=== PATIENT | male | born 1990 | race Two or more races ===

== ENCOUNTER 2019-12-03 15:37 | Emergency (ER) | payer MEDICAID, OTHER ==
[~2019-12-03] VITALS: Ht 175.3 cm; Wt 99.8 kg
[2019-12-03] MEDS ORDERED: SODIUM CHLORIDE 0.9% 500 ML IVB ONE (15:40)
[2019-12-03 16:48] LABS: Basophils # (auto) 0 10 ^3/uL (0-0.2); Basophils % (auto) 0.4 % (0.0-2.0); Eosinophils # (auto) 0.1 10 ^3/uL (0-0.8); Eosinophils % (auto) 1.2 % (0.0-7.0); Hematocrit 42.7 % (41.0-53.0); Hemoglobin 14.5 g/dL (13.5-17.5); Lymphocytes # (auto) 2.1 10 ^3/uL (0.4-5.4); Lymphocytes % (auto) 26.2 % (10.0-50.0); Mean Corpuscular Hemoglobin 31.1 pg (28.0-32.0); Mean Corpuscular Hgb Conc. 33.8 g/dL (32.0-36.0); Monocytes # (auto) 0.6 10 ^3/uL (0-1.3); Neutrophils # (auto) 5.1 10 ^3/uL (1.6-8.6); Neutrophils % (auto) 64.2 % (37.0-80.0); Nucleated Red Blood Cells % 0.1 %; Platelet Count (auto) 239 10^3/uL (140-450); Red Blood Cells 4.65 10^6/uL (4.5-5.90); Red Cell Distribution Width 13.9 % (11.8-14.3)
[2019-12-03 17:02] LABS: Albumin 3.9 g/dL (3.4-5.0); Anion Gap 6 (5-15); Blood Urea Nitrogen 20 mg/dL (7-18); Calcium 8.5 mg/dL (8.5-10.1); Carbon Dioxide 23 mmol/L (21-32); Chloride 112 mmol/L (98-107); Glucose 107 mg/dL (74-106); Potassium 3.7 mmol/L (3.5-5.1); Sodium 141 mmol/L (136-145)
[2019-12-03 17:05] LABS: Alanine Aminotransferase 58 U/L (16-61); Blood Alcohol < 3.0 mg/dL (0-5); GFR African American 133 mL/min; GFR Non-African American 110 mL/min
[2019-12-03 17:11] LABS: Alkaline Phosphatase 88 U/L (45-117); Aspartate Aminotransferase 30 U/L (15-37); Bilirubin, Total 0.6 mg/dL (0.2-1.0); Total Protein 7.4 g/dL (6.4-8.2)
[2019-12-03 17:13] LABS: Acetaminophen < 2.0 ug/mL (10-30); Salicylate < 1.7 mg/dL (2.8-20.0)
[2019-12-03 22:30] LABS: Amphetamine Screen, Urine POSITIVE (NEGATIVE); Barbiturate Scree,Urine NEGATIVE (NEGATIVE); Benzodiazephine Screen, Urine POSITIVE (NEGATIVE); Cannabinoid Screen, Urine POSITIVE (NEGATIVE); Cocaine Screen, Urine NEGATIVE (NEGATIVE); Opiate Scree,Urine NEGATIVE (NEGATIVE); Phencyclidine Screen, Urine NEGATIVE (NEGATIVE)
[2019-12-03 22:32] LABS: Alcohol, Urine < 3.0 mg/dL (0-10)
[2019-12-08 00:06] VITALS: BP 116/72
== END 2019-12-08 11:07 | disposition home or self-care (01) ==
LOC: ER 15:37 → EDBD 15:37 → ER 12-08 11:07
DX: T50.901A Poisoning by unspecified drugs, medicaments and biological substances, accidental (unintentional), initial encounter (principal); Y92.89 Other specified places as the place of occurrence of the external cause
CPT/HCPCS: 36415; 80053; 80307; 80320; 80329; 85025; 93005

== ENCOUNTER 2023-01-15 23:58 | Inpatient (IN) | payer OTHER, MEDICAID ==
[~2023-01-15] VITALS: Ht 177.8 cm; Wt 128.0 kg
[~2023-01-15 23:58] MED LIST: ETOMIDATE (2MG/ML) 20ML VIAL IV ONE; MIDAZOLAM HCL 2MG/2ML 2ml VIAL (1mg/ml) ONE; ROCURONIUM 10MG/ML 10ML VIAL IV ONE
[2023-01-16] VITALS (48 sets, daily range): BP systolic 83–135; BP diastolic 39–96; PULSE 67–114; RESP 12–28; TEMP 97.7–98.6; O2SAT 94–100
[2023-01-16] MEDS: MIDAZOLAM DRIP 50 mg/50mL 50 ML IV SCH ×5 (00:02→10:32)
[2023-01-16] MEDS ORDERED: MIDAZOLAM DRIP 50 mg/50mL 50 ML IV ONE (00:02)
[2023-01-16] MEDS ORDERED: PROPOFOL 100 ML IV ONE (01:39)
[2023-01-16] MEDS: PROPOFOL 100 ML IV SCH ×2 (01:45→10:33)
[2023-01-16 01:48] LABS: Urine Bacteria NONE SEEN /hpf (None Seen); Urine Blood Negative /uL (Negative); Urine Mucus FEW (None Seen); Urine Specific Gravity 1.014 (1.001-1.035); Urine Sperm PRESENT /hpf (None Seen); Urine WBC <1 /hpf (0 - 3)
[2023-01-16 01:57] LABS: Alcohol, Urine < 3.0 mg/dL (0-10); Amphetamine Screen, Urine POSITIVE (NEGATIVE); Barbiturate Scree,Urine NEGATIVE (NEGATIVE); Benzodiazephine Screen, Urine POSITIVE (NEGATIVE); Cannabinoid Screen, Urine NEGATIVE (NEGATIVE); Cocaine Screen, Urine NEGATIVE (NEGATIVE)
[2023-01-16 02:05] LABS: Opiate Scree,Urine NEGATIVE (NEGATIVE); Phencyclidine Screen, Urine NEGATIVE (NEGATIVE)
[2023-01-16] MEDS ORDERED: MIDAZOLAM DRIP 50 mg/50mL 50 ML IV SCH (02:15)
[2023-01-16] MEDS ORDERED: MIDAZOLAM HCL 5 MG/ML-1ML VIAL IV ONE (02:15)
[2023-01-16] MEDS ORDERED: PROPOFOL 100 ML IV SCH (02:15)
[2023-01-16] MEDS ORDERED: ROCURONIUM 10MG/ML 10ML VIAL IV ONE ×2 (02:15→04:15)
[2023-01-16] MEDS ORDERED: ETOMIDATE (2MG/ML) 20ML VIAL IV ONE (02:15)
[2023-01-16 02:20] LABS: Basophils # (auto) 0 10 ^3/uL (0-0.2); Basophils % (auto) 0.2 % (0.0-2.0); Eosinophils # (auto) 0 10 ^3/uL (0-0.8); Eosinophils % (auto) 0.5 % (0.0-7.0); Hemoglobin 16.3 g/dL (13.5-17.5); Lymphocytes # (auto) 2.8 10 ^3/uL (0.4-5.4); Lymphocytes % (auto) 29.8 % (10.0-50.0); Mean Corpuscular Hemoglobin 30.2 pg (28.0-32.0); Mean Corpuscular Hgb Conc. 33.2 g/dL (32.0-36.0); Monocytes # (auto) 0.6 10 ^3/uL (0-1.3); Monocytes % (auto) 6.2 % (0.0-12.0); Neutrophils # (auto) 5.9 10 ^3/uL (1.6-8.6); Neutrophils % (auto) 63.3 % (37.0-80.0); Nucleated Red Blood Cells % 0.3 %; Red Blood Cells 5.39 10^6/uL (4.5-5.90); Red Cell Distribution Width 14.2 % (11.8-14.3); White Blood Cell 9.3 10^3/uL (4.4-10.8)
[2023-01-16] MEDS ORDERED: ACETAMINOPHEN 325 MG TAB PO PRN (05:00)
[2023-01-16] MEDS ORDERED: ONDANSETRON HCL 4 MG/2 ML VIAL IV PRN (05:00)
[2023-01-16] MEDS ORDERED: SODIUM CHLORIDE 0.9% 1,000 ML IV ONE (05:00)
[2023-01-16] MEDS ORDERED: MORPHINE SULFATE INJ 2 MG/ml SYRG IV PRN (05:00)
[2023-01-16] MEDS ORDERED: SODIUM CHLORIDE 0.9% 1,000 ML IV SCH (05:00)
[2023-01-16] MEDS ORDERED: NITROGLYCERIN 0.4 MG SL TAB SL PRN (05:00)
[2023-01-16 05:31] LABS: INR 1.04 (0.9-1.15)
[2023-01-16 05:54] LABS: Acetaminophen < 2.0 ug/mL (10-30); Salicylate < 1.7 mg/dL (2.8-20.0)
[2023-01-16 05:57] LABS: Sodium 137 mmol/L (136-145)
[2023-01-16 05:58] LABS: Alanine Aminotransferase 92 U/L (16-61); Alkaline Phosphatase 104 U/L (45-117); Anion Gap 11 (5-15); Aspartate Aminotransferase 44 U/L (15-37); BUN/Creatinine Ratio 12.9 (10.0-20.0); Blood Urea Nitrogen 12 mg/dL (7-18); Carbon Dioxide 20 mmol/L (21-32); Chloride 106 mmol/L (98-107); GFR African American 121 mL/min; GFR Non-African American 100 mL/min; Glucose 114 mg/dL (74-106)
[2023-01-16 05:59] LABS: Albumin 4.1 g/dL (3.4-5.0); Bilirubin, Total 0.4 mg/dL (0.2-1.0); Blood Alcohol < 3.0 mg/dL (<10); Total Protein 8.4 g/dL (6.4-8.2)
[2023-01-16 06:24] LABS: Lipase 100 U/L (73-393)
[2023-01-16] MEDS ORDERED: PHENYLEPHRINE IV 250 ML IV ONE (06:33)
[2023-01-16] MEDS: PHENYLEPHRINE IV 250 ML IV SCH ×3 (06:38→16:18)
[2023-01-16] MEDS: PANTOPRAZOLE 40 MG/10 ML VIAL INJ IV SCH (09:38)
[2023-01-16 10:44] LABS: Potassium 4.1 mmol/L (3.5-5.1)
[2023-01-16 10:55] LABS: Albumin 3.6 g/dL (3.4-5.0); Bilirubin, Total 0.6 mg/dL (0.2-1.0); Calcium 8.2 mg/dL (8.5-10.1)
[2023-01-17] VITALS (14 sets, daily range): BP systolic 89–118; BP diastolic 54–74; PULSE 82–106; RESP 12–26; TEMP 97.8–98; O2SAT 91–100
[2023-01-17 04:30] LABS: Basophils # (auto) 0 10 ^3/uL (0-0.2); Basophils % (auto) 0.5 % (0.0-2.0); Eosinophils # (auto) 0.1 10 ^3/uL (0-0.8); Eosinophils % (auto) 1.3 % (0.0-7.0); Hematocrit 41.9 % (41.0-53.0); Hemoglobin 14.4 g/dL (13.5-17.5); Lymphocytes # (auto) 2.7 10 ^3/uL (0.4-5.4); Lymphocytes % (auto) 37.8 % (10.0-50.0); Mean Corpuscular Hemoglobin 31.1 pg (28.0-32.0); Mean Corpuscular Hgb Conc. 34.4 g/dL (32.0-36.0); Mean Corpuscular Volume 90.5 fL (80.0-100.0); Monocytes # (auto) 0.5 10 ^3/uL (0-1.3); Monocytes % (auto) 6.8 % (0.0-12.0); Neutrophils # (auto) 3.8 10 ^3/uL (1.6-8.6); Neutrophils % (auto) 53.6 % (37.0-80.0); Nucleated Red Blood Cells % 0.4 %; Potassium 3.8 mmol/L (3.5-5.1); Red Blood Cells 4.63 10^6/uL (4.5-5.90); Red Cell Distribution Width 14.2 % (11.8-14.3); White Blood Cell 7.1 10^3/uL (4.4-10.8)
[2023-01-17 04:36] LABS: Albumin 3.3 g/dL (3.4-5.0); BUN/Creatinine Ratio 14.5 (10.0-20.0); Calcium 8.8 mg/dL (8.5-10.1)
[2023-01-17 04:38] LABS: Bilirubin, Total 0.6 mg/dL (0.2-1.0); Total Protein 6.8 g/dL (6.4-8.2)
[2023-01-17] MEDS: PHENYLEPHRINE IV 250 ML IV SCH (07:30)
[2023-01-17] MEDS ORDERED: levETIRAcetam 500 MG TAB PO ONE (10:00)
[2023-01-17] MEDS: PANTOPRAZOLE 40 MG/10 ML VIAL INJ IV SCH (10:25)
== END 2023-01-17 13:53 | disposition home or self-care (01) | DRG 208 ==
LOC: EDBD 23:58 → EDUNIT# 23:58 → ER 01-16 00:03 → TELE 01-16 05:05 → ICU WEST 01-16 07:03
PROVIDERS: ADMIT Nurse Practitioner Acute Care; ATTEND Nurse Practitioner Acute Care
PROC: 5A1935Z Respiratory Ventilation, Less than 24 Consecutive Hours (ICD-10-PCS; principal; 2023-01-16)
PROC: 0BH17EZ Insertion of Endotracheal Airway into Trachea, Via Natural or Artificial Opening (ICD-10-PCS; 2023-01-16)
PROC: 06HM33Z Insertion of Infusion Device into Right Femoral Vein, Percutaneous Approach (ICD-10-PCS; 2023-01-16)
PROC: 4A143B0 Monitoring of Venous Pressure, Central, Percutaneous Approach (ICD-10-PCS; 2023-01-16)
DX: J96.00 Acute respiratory failure, unspecified whether with hypoxia or hypercapnia (principal); G93.41 Metabolic encephalopathy; R57.9 Shock, unspecified; Z68.41 Body mass index [BMI] 40.0-44.9, adult; E66.01 Morbid (severe) obesity due to excess calories; F15.90 Other stimulant use, unspecified, uncomplicated; F20.9 Schizophrenia, unspecified; F31.9 Bipolar disorder, unspecified; G40.909 Epilepsy, unspecified, not intractable, without status epilepticus; F17.210 Nicotine dependence, cigarettes, uncomplicated; T50.901A Poisoning by unspecified drugs, medicaments and biological substances, accidental (unintentional), initial encounter; Y92.89 Other specified places as the place of occurrence of the external cause
CPT/HCPCS: 31500; 36415; 36556; 36600; 70450; 71045; 71250; 72125; 74176; 80053; 80307; 80320; 80329; 81001; 82550; 82805; 83605; 83690; 84484; 85025; 85610; 87070; 87077; 87081; 87205; 93005; 94003; 99152; 99291; C9113; G0378; J2250; J2704; J7060

== ENCOUNTER 2024-07-17 22:33 | Emergency (ER) | payer OTHER, MEDICAID ==
[~2024-07-17] VITALS: Ht 170.2 cm; Wt 104.5 kg
[2024-07-17] MEDS: NALOXONE HCL 1MG/ML 2ML SYRINGE ONE ×2 (22:40→22:44)
[2024-07-17 23:00] VITALS: TEMP 97.9
[2024-07-17] MEDS ORDERED: NALOXONE HCL 1MG/ML 2ML SYRINGE IV ONE (23:00)
--- NOTE | 2024-07-17 23:07 | ED.PDOC ---
Altered Mental Status HPI Comments 33-year-old male came to ER via EMS for altered level of consciousness. Per EMS, patient was seen unresponsive on the bathroom floor by family members. Unresponsive to verbal stimuli. Upon arrival the paramedics, patient able to get up to the couch, denied using any prohibited drugs before becoming unresponsive again. Patient was given 2mg Narcan IN which slightly woke up the patient. Chief Complaint: ALOC Time Seen by MD: 23:07 Reviewed Notes: Nurses Notes Allergies: Coded Allergies: NO KNOWN ALLERGIES (Unverified , 07/17/24) Information Source: Emergency Med Personnel Mode of Arrival: EMS Severity: Unable to Care for Self, Unresponsive Timing: Minutes Duration: Since onset Prehospital treatment: Treatment (Narcan) Quality: Decreased Alertness, Change in Behavior Recent: None History of: None Associated Signs and Symptoms: None Past Medical History PAST MEDICAL HISTORY: Depression Surgical History: Unobtainable Family History Family History: Unobtainable Social History Smoker: Unobtainable Alcohol: Unobtainable Drugs: Unobtainable Lives In: Home Unable to Obtain due to: Other (Unresponsive to verbal stimuli) Physical Exam General Appearance: Mild Distress, Normal HEENT: Normal ENT Inspection, Pharynx Normal, TMs Normal Neck: Full Range of Motion, Non-Tender, Normal, Normal Inspection Respiratory: Chest Non-Tender, Lungs Clear, No Accessory Muscle Use, No Respiratory Distress, Normal Breath Sounds Cardiovascular: No Edema, No JVD, No Murmur, No Gallop, Normal Peripheral Pulses, Regular Rate/Rhythm Breast Exam: Deferred Gastrointestinal: No Organomegaly, Non Tender, No Pulsatile Mass, Normal Bowel Sounds, Soft Genitalia: Deferred Pelvic: Deferred Rectal: Deferred Extremities: No calf tenderness, Normal capillary refill, Normal inspection, Normal range of motion, Non-tender, No pedal edema Musculoskeletal : Apperance: Normal Neurologic: Alert, sports equipment racker II-XII nml as Tested, No Motor Deficits, Normal Affect, Normal Mood, No Sensory Deficits Cerebellar Function: Normal Reflexes: Normal Skin: Dry, Normal Color, Warm Lymphatic: No Adenopathy EKG EKG : Pulse Rate (adult): 76 Cardiac Rhythm: NSR Was a procedure done? Was a procedure done?: No Differential Diagnosis (ALOC) Differential Diagnosis: Dehydration, Hypoglycemia, Encephalopathy, Hypoxemia, Seizure, CVA, Drug Overdose, ETOH Intoxication X-Ray, Labs, Meds, VS Vital Signs Date Time Temp Pulse Resp B/P (MAP) Pulse Ox O2 Delivery O2 Flow Rate FiO2 07/18/24 00:00 58 12 123/88 (100) 99 07/17/24 23:08 76 07/17/24 23:00 Nasal Cannula* 2 28 07/17/24 23:00 97.9 61 12 122/79 (93) 100 97.9 07/17/24 22:54 18 94 Room Air* 0 21 07/17/24 22:48 97.7 70 18 117/51 (73) 94 07/17/24 22:33 76 Lab Test 07/18/24 00:16 07/17/24 22:48 Range/Units Troponin I High Sensitivity 4 3 L </=54 ng/L White Blood Count 8.6 4.4-10.8 10^3/uL Red Blood Count 5.08 4.5-5.90 10^6/uL Hemoglobin 15.7 13.5-17.5 g/dL Hematocrit 46.4 41.0-53.0 % Mean Corpuscular Volume 91.3 80.0-100.0 fL Mean Corpuscular Hemoglobin 30.8 28.0-32.0 pg Mean Corpuscular Hemoglobin Concent 33.7 32.0-36.0 g/dL Red Cell Distribution Width 14.2 11.8-14.3 % Platelet Count 237 140-450 10^3/uL Mean Platelet Volume 6.8 L 6.9-10.8 fL Neutrophils (%) (Auto) 74.1 37.0-80.0 % Lymphocytes (%) (Auto) 19.8 10.0-50.0 % Monocytes (%) (Auto) 5.6 0.0-12.0 % Eosinophils (%) (Auto) 0.3 0.0-7.0 % Basophils (%) (Auto) 0.2 0.0-2.0 % Neutrophils # (Auto) 6.4 1.6-8.6 10 ^3/uL Lymphocytes # (Auto) 1.7 0.4-5.4 10 ^3/uL Monocytes # (Auto) 0.5 0-1.3 10 ^3/uL Eosinophils # (Auto) 0 0-0.8 10 ^3/uL Basophils # (Auto) 0 0-0.2 10 ^3/uL Nucleated Red Blood Cells 0.3 % Sodium Level 139 136-145 mmol/L Potassium Level 3.7 3.5-5.1 mmol/L Chloride Level 106 98-107 mmol/L Carbon Dioxide Level 24 20-31 mmol/L Anion Gap 9 5-15 Blood Urea Nitrogen 10 9-23 mg/dL Creatinine 1.27 0.700-1.30 mg/dL Glomerular Filtration Rate Calc 77 >90 mL/min BUN/Creatinine Ratio 7.9 L 10.0-20.0 Serum Glucose 108 H 74-106 mg/dL Lactic Acid Level 1.2 0.4-2.0 mmol/L Calcium Level 9.8 8.7-10.4 mg/dL Total Bilirubin 1.0 0.2-1.0 mg/dL Aspartate Amino Transferase (AST) 35 13-40 U/L Alanine Aminotransferase (ALT) 69 H 7-40 U/L Alkaline Phosphatase 89 46-116 U/L Total Protein 7.6 5.7-8.2 g/dL Albumin 4.8 3.2-4.8 g/dL Plasma/Serum Blood Alcohol < 3.0 <10 mg/dL [place] [id number] Ph: [phone] DIAGNOSTIC IMAGING Diagnostic Imaging Report : [id number] Signed PATIENT: SUPRIYA BEGUMOACCT: [id number] UNIT: [id number] : 1990 LOC: ER ROOM / BED: / AGE / SEX: 33 / M ADM STATUS: REG ER SERVICE [id number] ORDERING PHYSICIAN: ZONIA HUNTLEY MD PROCEDURE(s): HWOCT - HEAD WITHOUT CONTRAST REASON: low po2 ORDER NUMBER(s): [id number], ACCESSION NUMBER(s): [id number] CT BRAIN WITHOUT CONTRAST HISTORY: low po2 TECHNIQUE: Axial scans were obtained from the skull base through the vertex without contrast. Sagittal and coronal reformats were generated. One or more of the following radiation dose reduction techniques were used for this examination: automated exposure control, adjustment of the mA and/or kV according to patient size, use of iterative reconstruction technique. COMPARISON: 01/16/2023 FINDINGS: No acute intracranial hemorrhage or evidence of large vessel territorial infarction identified at this time. No midline shift. The basilar cisterns are patent. Owens-white differentiation appears relatively preserved. Presumed posterior fossa arachnoid cyst is again noted. If clinically warranted this can be further evaluated with MRI. Mild mucosal thickening in the imaged right maxillary sinus. The other paranasal sinuses and mastoid air cells are clear. No grossly displaced calvarial fracture is identified. IMPRESSION: No acute intracranial findings. HS:Y ATED BY: MANJIT ARVIZU MD DICTATED DATE/TIME: 07/18/24107 SIGNED BY: MANJIT ARVIZU MD SIGNED DATE/TIME: 07/18/24107 CC: [place] [id number] Ph: [phone] DIAGNOSTIC IMAGING Diagnostic Imaging Report : [id number] Signed PATIENT: SUPRIYA BEGUMOACCT: [id number] UNIT: [id number] : 1990 LOC: ER ROOM / BED: / AGE / SEX: 33 / M ADM STATUS: REG ER SERVICE 44 ORDERING PHYSICIAN: ZONIA HUNTLEY MD PROCEDURE(s): CXRP - CHEST PORTABLE REASON: sob ORDER NUMBER(s): [id number], ACCESSION NUMBER(s): [id number] CHEST RADIOGRAPH Indication: sob Technique: Single frontal view of the chest was obtained Comparison: None Findings/ impression: Low lung volumes with bronchovascular crowding. Left basilar opacification concerning for atelectasis versus airspace disease. ATED BY: SADA HENDRICKS DO DICTATED DATE/TIME: 07/18/2441 SIGNED BY: SADA HENDRICKS DO SIGNED DATE/TIME: 07/18/2441 CC: First troponin is three. 2nd troponin is four. EKG shows no signs of ischemia CBC and CMP is pending Alcohol is negative. Urine drug screen is pending. Suspect polysubstance abuse Chest x-ray shows left basilar opacities. The patient was placed on Levaquin and admitted to the hospitalist. Time of 1ST Reevaluation: 23:00 Reevaluation 1ST: Unchanged Patient Education/Counseling: Pt Unresponsive (Unresponsive to verbal stimuli) Family Education/Counseling: No Family Present Departure 1 Departure Time of Disposition: 01:54 Impression: Primary Impression: Altered mental status Qualified Codes: R41.82 - Altered mental status, unspecified Additional Impressions: Metabolic encephalopathy Pneumonia Qualified Codes: J18.9 - Pneumonia, unspecified organism Polysubstance abuse Disposition: ADMITTED INPATIENT Admit to: Tele Condition: Guarded Critical Care Note Critical Care Time?: Yes (35 min-critical care time only) Critical care comment: Altered level of consciousness Stability Stability form required: No Heart Score Heart Score: Heart Score Response (Comments) Value History N/A 0 EKG N/A 0 Age N/A 0 Risk Factors N/A 0 Troponin N/A 0 Total 0 I personally scribed for ZONIA HUNTLEY MD (BRIE) on 07/17/24 at 23:07. Electronically submitted by Alfred Rdz ([email or web address]). I personally scribed for ZONIA HUNTLEY MD (BRIE) on 07/17/24 at 23:08. Electronically submitted by Alfred Rdz ([email or web address]). ZONIA HUNTLEY MD Jul 17, 2024 23:07
[2024-07-17 23:57] LABS: Basophils # (auto) 0 10 ^3/uL (0-0.2); Basophils % (auto) 0.2 % (0.0-2.0); Eosinophils # (auto) 0 10 ^3/uL (0-0.8); Eosinophils % (auto) 0.3 % (0.0-7.0); Hematocrit 46.4 % (41.0-53.0); Hemoglobin 15.7 g/dL (13.5-17.5); Lymphocytes # (auto) 1.7 10 ^3/uL (0.4-5.4); Lymphocytes % (auto) 19.8 % (10.0-50.0); Mean Corpuscular Hemoglobin 30.8 pg (28.0-32.0); Mean Corpuscular Hgb Conc. 33.7 g/dL (32.0-36.0); Mean Corpuscular Volume 91.3 fL (80.0-100.0); Monocytes # (auto) 0.5 10 ^3/uL (0-1.3); Monocytes % (auto) 5.6 % (0.0-12.0); Neutrophils # (auto) 6.4 10 ^3/uL (1.6-8.6); Neutrophils % (auto) 74.1 % (37.0-80.0); Nucleated Red Blood Cells % 0.3 %; Platelet Count (auto) 237 10^3/uL (140-450); Red Blood Cells 5.08 10^6/uL (4.5-5.90); Red Cell Distribution Width 14.2 % (11.8-14.3); White Blood Cell 8.6 10^3/uL (4.4-10.8)
[2024-07-18 00:15] LABS: Albumin 4.8 g/dL (3.2-4.8); Alkaline Phosphatase 89 U/L (46-116); Anion Gap 9 (5-15); Aspartate Aminotransferase 35 U/L (13-40); BUN/Creatinine Ratio 7.9 (10.0-20.0); Blood Urea Nitrogen 10 mg/dL (9-23); Calcium 9.8 mg/dL (8.7-10.4); Carbon Dioxide 24 mmol/L (20-31); Chloride 106 mmol/L (98-107); Potassium 3.7 mmol/L (3.5-5.1); Sodium 139 mmol/L (136-145)
[2024-07-18 00:16] LABS: Total Protein 7.6 g/dL (5.7-8.2)
[2024-07-18 00:22] LABS: Alanine Aminotransferase 69 U/L (7-40); Blood Alcohol < 3.0 mg/dL (<10); Glucose 108 mg/dL (74-106)
--- NOTE | 2024-07-18 00:44 | DVH ---
CHEST RADIOGRAPH Indication: sob Technique: Single frontal view of the chest was obtained Comparison: None Findings/ impression: Low lung volumes with bronchovascular crowding. Left basilar opacification conc erning for atelectasis versus airspace disease.
--- NOTE | 2024-07-18 01:10 | DVH ---
CT BRAIN WITHOUT CONTRAST HISTORY: low po2 TECHNIQUE: Axial scans were obtained from the skull base through the vertex without contrast. Sagitta l and coronal reformats were generated. One or more of the following radiation dose reduction techniq ues were used for this examination: automated exposure control, adjustment of the mA and/or kV accord ing to patient size, use of iterative reconstruction technique. COMPARISON: 01/16/2023 FINDINGS: No acute intracranial hemorrhage or evidence of large vessel territorial infarction identified at thi s time. No midline shift. The basilar cisterns are patent. Owens-white differentiation appears relati vely preserved. Presumed posterior fossa arachnoid cyst is again noted. If clinically warranted this can be further evaluated with MRI. Mild mucosal thickening in the imaged right maxillary sinus. The other paranasal sinuses and mastoid air cells are clear. No grossly displaced calvarial fracture is identified. IMPRESSION: No acute intracranial findings. HS:Y
[2024-07-18] MEDS ORDERED: levoFLOXacin 500MG 100 ML IV ONE (02:00)
[2024-07-18] MEDS: cefTRIAXone 1GM/50ML D5W 50 ML IV ONE (07:04)
[2024-07-18 07:23] VITALS: BP 152/112; RESP 14; O2SAT 99
[2024-07-18 08:01] VITALS: PULSE 84
--- NOTE | 2024-07-19 13:13 | ECG ---
[facility] Test Date: 2024-07-17 Test Time: 22:32:39 Pat Name: PILY BELLAMYSHY Department: er Room: Gender: M Supervisor [employer]: : 1990 Requested By: ZONIA HUNTLEY Order Number: [id number] Reading MD: Freddie Huston Measurements Intervals [place] Rate: 76 P: 33 MS: 156 QRS: 23 QRSD: 96 T: 56 QT: 379 QTc: 427 Interpretive Statements Sinus rhythm Electronically Signed On 07-19-2024 21:11:30 PST by Freddie Huston Please click the below link to view image of tracing.
== END 2024-07-18 09:31 | disposition left against medical advice (07) ==
LOC: ER 22:33 → MERGE 22:33 → EDBD 22:33 → ER 07-18 09:26
DX: R41.82 Altered mental status, unspecified (principal); G93.41 Metabolic encephalopathy; J18.9 Pneumonia, unspecified organism; F32.A Depression, unspecified; Z79.899 Other long term (current) drug therapy
CPT/HCPCS: 36415; 70450; 71045; 80053; 80320; 83605; 84484; 85025; 93005; 96365; 99291; J0696; J2310

== ENCOUNTER 2025-03-08 22:28 | Emergency (ER) | payer OTHER, MEDICAID ==
[~2025-03-08] VITALS: Ht 175.3 cm; Wt 100.0 kg
[2025-03-08] MEDS: NALOXONE HCL 1MG/ML 2ML SYRINGE ONE (22:43)
[2025-03-08] MEDS: NALOXONE HCL 1MG/ML 2ML SYRINGE IV ONE (23:18)
[2025-03-08 23:25] VITALS: PULSE 67; RESP 18; O2SAT 97
--- NOTE | 2025-03-09 00:12 | ED.PDOC ---
Altered Mental Status HPI Comments 34-year-old male brought in by ambulance found by mother difficult to arouse and somnolent. EMS noted that the patient's pupils appear pinpoint and sluggish and gave some Narcan was mild improvement Chief Complaint: ALOC Time Seen by MD: 00:02 Allergies: Coded Allergies: NO KNOWN ALLERGIES (Unverified , 12/03/19) Home Meds No Active Prescriptions or Reported Meds Information Source: Patient, Emergency Med Personnel Mode of Arrival: EMS Severity: Moderate, Severe Timing: Hours Duration: Since onset Quality: Decreased Alertness, Change in Behavior, Confusion Past Medical History PAST MEDICAL HISTORY: Depression, Pt Confused Surgical History: Denies all surgeries Family History Family History: Family hx of Cancer Social History Smoker: Cigarettes Alcohol: Occasionally Drugs: Denies Drug Use, Marijuana, Methamphetamine Lives In: Home Constitutional: reports: fatigue, weakness Unable to Obtain due to: Altered Mental Status Physical Exam Exam Comments Somnolent, responds to vigorous stimulus General Appearance: No Apparent Distress, Normal HEENT: Other (Pinpoint pupils) Neck: Full Range of Motion, Non-Tender, Normal, Normal Inspection Respiratory: Chest Non-Tender, Lungs Clear, No Accessory Muscle Use, No Respiratory Distress, Normal Breath Sounds Cardiovascular: No Edema, No JVD, No Murmur, No Gallop, Normal Peripheral Pulses, Regular Rate/Rhythm Breast Exam: Deferred Gastrointestinal: No Organomegaly, Non Tender, No Pulsatile Mass, Normal Bowel Sounds, Soft Genitalia: Deferred Pelvic: Deferred Rectal: Deferred Extremities: No calf tenderness, Normal capillary refill, Normal inspection, Normal range of motion, Non-tender, No pedal edema Musculoskeletal : Apperance: Normal Neurologic: Disoriented, Other (Somnolent) Cerebellar Function: Normal Reflexes: Normal Skin: Dry, Normal Color, Warm Lymphatic: No Adenopathy Was a procedure done? Was a procedure done?: No Differential Diagnosis (ALOC) Differential Diagnosis: Dehydration, Hypoglycemia, Encephalopathy, Meningitis, Seizure, Closed Head Injury, CVA, SAH, Drug Overdose, ETOH Intoxication, Other X-Ray, Labs, Meds, VS Vital Signs Date Time Temp Pulse Resp B/P (MAP) Pulse Ox O2 Delivery O2 Flow Rate FiO2 03/09/25 01:00 69 18 121/70 (87) 99 03/09/25 00:30 98.3 71 20 121/73 (89) 100 98.3 03/08/25 23:25 67 18 97 Room Air* 2 N/A Nasal Cannula* 03/08/25 23:25 98.1 67 18 116/83 (94) 97 98.1 03/08/25 23:14 69 03/08/25 22:38 97.7 82 14 129/90 97 97.7 Lab Test 03/09/25 00:22 03/08/25 22:53 Range/Units White Blood Count 10.5 4.4-10.8 10^3/uL Red Blood Count 5.45 4.5-5.90 10^6/uL Hemoglobin 16.6 13.5-17.5 g/dL Hematocrit 49.0 41.0-53.0 % Mean Corpuscular Volume 89.9 80.0-100.0 fL Mean Corpuscular Hemoglobin 30.5 28.0-32.0 pg Mean Corpuscular Hemoglobin Concent 33.9 32.0-36.0 g/dL Red Cell Distribution Width 13.9 11.8-14.3 % Platelet Count 247 140-450 10^3/uL Mean Platelet Volume 6.7 L 6.9-10.8 fL Neutrophils (%) (Auto) 70.2 37.0-80.0 % Lymphocytes (%) (Auto) 23.4 10.0-50.0 % Monocytes (%) (Auto) 5.4 0.0-12.0 % Eosinophils (%) (Auto) 0.6 0.0-7.0 % Basophils (%) (Auto) 0.4 0.0-2.0 % Neutrophils # (Auto) 7.4 1.6-8.6 10 ^3/uL Lymphocytes # (Auto) 2.5 0.4-5.4 10 ^3/uL Monocytes # (Auto) 0.6 0-1.3 10 ^3/uL Eosinophils # (Auto) 0.1 0-0.8 10 ^3/uL Basophils # (Auto) 0 0-0.2 10 ^3/uL Nucleated Red Blood Cells 0.2 % Sodium Level 142 136-145 mmol/L Potassium Level 4.2 3.5-5.1 mmol/L Chloride Level 106 98-107 mmol/L Carbon Dioxide Level 27 20-31 mmol/L Anion Gap 9 5-15 Blood Urea Nitrogen 12 9-23 mg/dL Creatinine 1.12 0.700-1.30 mg/dL Glomerular Filtration Rate Calc 88 >90 mL/min BUN/Creatinine Ratio 10.7 10.0-20.0 Serum Glucose 128 H 74-106 mg/dL Calcium Level 9.6 8.7-10.4 mg/dL Magnesium Level 2.3 1.6-2.6 mg/dL Total Bilirubin 0.6 0.2-1.0 mg/dL Aspartate Amino Transferase (AST) 51 H 13-40 U/L Alanine Aminotransferase (ALT) 108 H 7-40 U/L Alkaline Phosphatase 99 46-116 U/L Total Protein 8.0 5.7-8.2 g/dL Albumin 4.5 3.2-4.8 g/dL Salicylates Level < 3.0 -30 mg/dL Acetaminophen Level < 2.0 L 10.0-20.0 UG/ML Plasma/Serum Blood Alcohol < 3.0 <10 mg/dL POC Glucose 154 H 70-106 mg/dl Current Medications Medications (Trade) Dose Ordered Sig/Mukul Route Start Time Stop Time Status Last Admin Naloxone HCl (Narcan) 2 mg ONCE ONCE IV 03/08/25 23:00 03/08/25 23:01 DC 03/08/25 23:18 Time of 1ST Reevaluation: 00:10 Reevaluation 1ST: Unchanged Patient Education/Counseling: Diagnosis, Treatment Family Education/Counseling: No Family Present SEPSIS Sepsis Screen Date sepsis recognized/suspect: Mar 08, 2025 Time Sepsis recognized/suspect: 2325 Recent Procedure: No On Antibiotic Therapy: No Respiratory Rate >20: No Heart Rate >90: No Temp<36 C (96.8 F) or >38.3 C: No SBP <90 or MAP <65 mmHG: No New Acute Mental Status Change: No Is the patient on CPAP, BIPAP,: No Physician Orders Electrocardigram (03/08/25 23:22) Urinalysis (03/09/25 00:04) Chest Portable (03/09/25 00:04) Head Without Contrast (03/09/25 00:04) Drug Screen (03/09/25 00:04) [employer]ing Machine Operator (03/09/25 00:04) Pulse Oximetry (03/09/25 00:04) Vital Signs Date Time Temp Pulse Resp B/P (MAP) Pulse Ox O2 Delivery O2 Flow Rate FiO2 03/09/25 01:00 69 18 121/70 (87) 99 03/09/25 00:30 98.3 71 20 121/73 (89) 100 98.3 03/08/25 23:25 67 18 97 Room Air* 2 N/A Nasal Cannula* 03/08/25 23:25 98.1 67 18 116/83 (94) 97 98.1 03/08/25 23:14 69 03/08/25 22:38 97.7 82 14 129/90 97 97.7 Laboratory Tests Test 03/09/25 00:22 White Blood Count 10.5 10^3/uL (4.4-10.8) Medications Medications Dose Ordered Sig/Mukul Route Start Time Stop Time Status Last Admin Dose Admin Naloxone HCl 2 mg ONCE ONCE IV 03/08/25 23:00 03/08/25 23:01 DC 03/08/25 23:18 Departure 1 Departure Time of Disposition: 01:54 Impression: Primary Impression: Obtunded Additional Impressions: Metabolic encephalopathy Altered mental status Disposition: ADMITTED INPATIENT Condition: Guarded e-Prescriptions No Active Prescriptions or Reported Meds Discharged With: Self Comments 34-year-old male with significant altered mental status. Patient has some pinpoint pupils. I suspect likely opiate overdose. However patient's mother was unaware of any drug use. Patient is quite somnolent after ED observation. Lab and CT findings reviewed. Patient will need admission for supportive care and further workup. Critical Care Note Critical Care Time?: Yes (35 min-critical care time only) Critical care comment: Total critical care time: Approximately 36 minutes Due to a high probability of clinically significant, life threatening deterioration, the patient required my highest level of preparedness to intervene emergently and I personally spent this critical care time directly and personally managing the patient. This critical care time included obtaining a history; examining the patient; pulse oximetry; ordering and review of studies; arranging urgent treatment with development of a management plan; evaluation of patient's response to treatment; frequent reassessment; and, discussions with other providers. This critical care time was performed to assess and manage the high probability of imminent, life-threatening deterioration that could result in multi-organ failure. It was exclusive of separately billable procedures and treating other patients. Stability Stability form required: No Heart Score Heart Score: Heart Score Response (Comments) Value History N/A 0 EKG N/A 0 Age N/A 0 Risk Factors N/A 0 Troponin N/A 0 Total 0 BEVERLY RAMOS MD Mar 09, 2025 00:12
--- NOTE | 2025-03-09 00:33 | DVH ---
CHEST RADIOGRAPH Indication: SOB Technique: Single frontal view of the chest was obtained COMPARISON: XY CHEST PORTABLE on DOS: 07/18/24, XY CHEST PORTABLE on DOS: 01/16/23 FINDINGS: Lines and Tubes: None Lungs: Clear Pleura: No effusion. No pneumothorax. Cardiomediastinal contours: Unremarkable Bones: Unremarkable IMPRESSION: 1. No acute disease.
--- NOTE | 2025-03-09 00:34 | DVH ---
EXAM: CT HEAD WITHOUT CONTRAST INDICATION: ALOC TECHNIQUE: CT of the head without intravenous contrast. Radiation Dose : 1. Head: CT Dose: CTDI volume is 67.39 mGy. Dose-length product is 1080.0 mGy*cm The dose indicators for CT are the volume Computed Tomography (CT) Dose Index (CTDIvol) and the Dose Length Product (DLP), and are measured in units of mGy and mGy-cm, respectively. These indicators are not patient dose, but values generated from the CT scanner acquisition factors. The report includes radiation exposure data for exposures received during this examination. COMPARISON: CT HEAD WITHOUT CONTRAST on DOS: 07/18/24, CT HEAD WITHOUT CONTRAST on DOS: 01/16/23, CT CERV ICAL WITHOUT CONTRAST on DOS: 01/16/23 FINDINGS: There is no evidence of acute intracranial hemorrhage, extra-axial collection, mass effect, midline s hift, herniation or hydrocephalus. The ventricles, sulci and cisterns are age appropriate. Kev cisterna magna versus arachnoid cyst wit hin the posterior cranial fossa. The bedolla-white differentiation is intact. The visualized paranasal sinuses and mastoid air cells are clear. The surrounding soft tissues and osseous structures are unremarkable. IMPRESSION: 1. No acute intracranial abnormality. Radiation optimization: All CT scans at this facility use at least one of these dose optimization scooter hniques: automated exposure control mA and/or kV adjustment per patient size (includes targeted exam s where dose is matched to clinical indication) or iterative reconstruction.
[2025-03-09 00:38] LABS: Hematocrit 49.0 % (41.0-53.0); Hemoglobin 16.6 g/dL (13.5-17.5); Mean Corpuscular Hemoglobin 30.5 pg (28.0-32.0); Mean Corpuscular Volume 89.9 fL (80.0-100.0); Nucleated Red Blood Cells % 0.2 %
[2025-03-09 00:54] LABS: Acetaminophen < 2.0 UG/ML (10.0-20.0); Salicylate < 3.0 mg/dL (-30)
[2025-03-09 01:14] LABS: Alkaline Phosphatase 99 U/L (46-116); Anion Gap 9 (5-15); BUN/Creatinine Ratio 10.7 (10.0-20.0); Blood Urea Nitrogen 12 mg/dL (9-23); Calcium 9.6 mg/dL (8.7-10.4); Carbon Dioxide 27 mmol/L (20-31); Chloride 106 mmol/L (98-107); Magnesium 2.3 mg/dL (1.6-2.6); Potassium 4.2 mmol/L (3.5-5.1); Sodium 142 mmol/L (136-145); Total Protein 8.0 g/dL (5.7-8.2)
[2025-03-09 01:15] LABS: Alanine Aminotransferase 108 U/L (7-40); Albumin 4.5 g/dL (3.2-4.8); Bilirubin, Total 0.6 mg/dL (0.2-1.0); Glucose 128 mg/dL (74-106)
[2025-03-09 02:30] VITALS: BP 103/60; PULSE 85; RESP 17; TEMP 98; O2SAT 97
--- NOTE | 2025-03-09 07:09 | ECG ---
[facility] Test Date: 2025-03-08 Test Time: 23:14:43 Pat Name: PILY BEGUM Department: Room: Gender: M Student Recruiter: JESIKA : 1990 Requested By: EMERGENCY EMERGENCY Order Number: [id number] Reading MD: Freddie Huston Measurements Intervals [place] Rate: 69 P: 30 IN: 168 QRS: 40 QRSD: 91 T: 12 QT: 393 QTc: 421 Interpretive Statements Sinus rhythm LVH by voltage Electronically Signed On 03-17-2025 21:30:09 PDT by Freddie Huston Please click the below link to view image of tracing.
== END 2025-03-09 02:38 | disposition home or self-care (01) ==
LOC: EDBD 22:28 → ER 22:28
DX: R41.82 Altered mental status, unspecified (principal); G93.41 Metabolic encephalopathy; F17.210 Nicotine dependence, cigarettes, uncomplicated; R00.2 Palpitations; R06.02 Shortness of breath
CPT/HCPCS: 36415; 70450; 71045; 80053; 80320; 80329; 82947; 83735; 85025; 93005; 96374; 99291; J2312; 82962